=== PATIENT | male | born 1975 | race African-American/Black ===

== ENCOUNTER 2016-07-30 15:56 | Emergency (ER) | payer OTHER ==
[~2016-07-30] VITALS: Ht 325.1 cm; Wt 86.2 kg
[~2016-07-30 15:56] MED LIST: AZIT250T6 PO; BUPR100T6 PO; CITA40TA12 PO; GUAI118L13 PO; HYDR-2758 PO; HYDR-971 PO; LORA-434 PO; ONDA4TAB10 SL; PRAZ1CAP2 PO; PRAZ5CAP PO; TELM20TA PO; VENL37.5 PO
[2016-07-30 16:37] LABS: BASO % 1 % (0-3); EOS # 0.2 x10^3/uL (0.0-0.7); EOS % 3 % (0-3); HEMATOCRIT 42.8 % (39.0-53.0); HEMOGLOBIN 15.6 g/dL (13.0-17.5); LYMPH # 2.5 x10^3/uL (1.0-4.8); LYMPH % 36 % (24-48); MEAN CORPUSCULAR HEMOGLOBIN 31 pg (25-35); MEAN CORPUSCULAR HGB CONC 37 g/dL (31-37); MEAN CORPUSCULAR VOLUME 84 fL (79-100); MONO # 0.6 x10^3/uL (0.0-1.1); MONO % 8 % (0-9); NEUT # 3.6 x10^3uL (1.8-7.7); NEUT % 53 % (31-73); PLATELET COUNT 256 x10^3/uL (140-400); RED BLOOD COUNT 5.07 x10^6/uL (4.30-5.70); RED CELL DISTRIBUTION WIDTH 13.8 % (11.5-14.5); WHITE BLOOD COUNT 6.9 x10^3/uL (4.0-11.0)
[2016-07-30] MEDS ORDERED: IOHEXOL 300 MG/ML 75 ML VIAL. IV ONE (16:45)
[2016-07-30] MEDS ORDERED: IOHEXOL 240 MG/ML 50ML VIAL. PO ONE (16:45)
[2016-07-30 16:54] LABS: ALBUMIN 3.9 g/dL (3.4-5.0); ALBUMIN/GLOBULIN RATIO 1.1 (1.0-1.7); ALK PHOS 69 U/L (46-116); ALT (SGPT) 56 U/L (16-63); ANION GAP 10 (6-14); AST (SGOT) 21 U/L (15-37); BLOOD UREA NITROGEN 18 mg/dL (8-26); BUN/CREATININE RATIO 18 (6-20); CALCIUM 8.6 mg/dL (8.5-10.1); CARBON DIOXIDE 27 mmol/L (21-32); CHLORIDE 105 mmol/L (98-107); CREATINE KINASE 287 U/L (39-308); GFR 98.7; GLUCOSE 92 mg/dL (70-99); LIPASE 160 U/L (73-393); POTASSIUM 3.5 mmol/L (3.5-5.1); SODIUM 142 mmol/L (136-145); TOTAL BILIRUBIN 0.4 mg/dL (0.2-1.0); TOTAL PROTEIN 7.3 g/dL (6.4-8.2)
--- NOTE | 2016-07-30 17:02 | PHYS DOC ---
Past History Past Medical History: Anxiety, Depression Past Surgical History: No Surgical History Alcohol Use: None Drug Use: None Adult General Chief Complaint Chief Complaint: palpitations HPI HPI Patient is a 41-year-old man who presents to the ED with a complaint of palpitations for a couple of hours earlier today. Patient states he was fine when he got up this morning. Around 10:00 he started to notice episodes where he would be able to feel his heart beat fast and sometimes irregular, each episode would last a few seconds and would go away by itself. This happened several times from about 10 or 10:30 until about 1:30. On arrival to the ED, it has not happened for about 2-1/2 hours. He did not have chest pain associated with it, not shortness of air, just had this sensation of his heart pounding in his chest. He's never had that before. No cardiac problems. The patient states his pain that he is having today is actually in his abdomen. He has been having mid abdominal pain for about 3 weeks now, becoming increasingly bad. For about the first week he just ignored it, thought it would go away. Then about 2 weeks ago, he saw his doctor at [place]. She ordered an ultrasound which is scheduled for this coming Monday. She also gave him some Prilosec which she has taken but has not helped. The pain is constant, located mid abdomen to slightly above the umbilicus. It does not radiate. It started out as negative pain but now is quite bothersome. Some nausea and anorexia, no vomiting. No diarrhea, no black stools or bloody stools. Some stools have been yellow or 10 in color "like baby stools". No urinary symptoms. No GERD symptoms. He's never had this before the last 3 weeks. He has no chronic stomach or abdominal problems. He's never had abdominal surgery, denies history of a hernia. PCP at [place] Review of Systems Review of Systems Constitutional: Denies fever or chills [] Respiratory: Denies cough or shortness of breath [] Cardiovascular: As in history of present illness GI: As in history of present illness : Denies dysuria or hematuria [] Musculoskeletal: Denies back pain or joint pain [] Integument: Denies rash or skin lesions [] Neurologic: Denies headache, focal weakness or sensory changes [] Allergies Allergies Allergies Coded Allergies Type Severity Reaction Last Updated Verified ibuprofen Allergy Unknown 05/20/15 No naproxen Allergy Unknown 05/20/15 No Physical Exam Physical Exam Constitutional: Well developed, well nourished, no acute distress, non-toxic appearance. Alert, mentating normally, vital signs stable, heart rate 70s and sinus without ectopy on the monitor. HENT: Normocephalic, atraumatic, bilateral external ears normal, nose normal. [ ] Eyes: conjunctiva normal, no discharge. [] Neck: Normal range of motion, no stridor. [] Cardiovascular:Heart rate regular rhythm, no murmur [] Lungs & Thorax: Bilateral breath sounds clear to auscultation [] Abdomen: Bowel sounds normal, no bruit. Mild increased tympany across the upper abdomen but no obvious distention. Abdomen is tender to mild palpation in all quadrants, slightly worse across the upper abdomen and just above the umbilicus. No mass, no pulsatile mass. No definite rebound or guarding but he does have significant tenderness. Skin: Warm, dry, no erythema, no rash. [] Extremities: No tenderness, no cyanosis, no clubbing, ROM intact, no edema. [] Neurologic: Alert and oriented X 3, normal motor function, normal sensory function, no focal deficits noted. [] Current Patient Data Vital Signs Vital Signs Date Time Temp Pulse Resp B/P (MAP) Pulse Ox O2 Delivery O2 Flow Rate FiO2 07/30/16 16:13 97.8 68 16 100 Room Air Lab Results Laboratory Tests Test 07/30/16 16:15 White Blood Count 6.9 x10^3/uL (4.0-11.0) Red Blood Count 5.07 x10^6/uL (4.30-5.70) Hemoglobin 15.6 g/dL (13.0-17.5) Hematocrit 42.8 % (39.0-53.0) Mean Corpuscular Volume 84 fL (79-100) Mean Corpuscular Hemoglobin 31 pg (25-35) Mean Corpuscular Hemoglobin Concent 37 g/dL (31-37) Red Cell Distribution Width 13.8 % (11.5-14.5) Platelet Count 256 x10^3/uL (140-400) Neutrophils (%) (Auto) 53 % (31-73) Lymphocytes (%) (Auto) 36 % (24-48) Monocytes (%) (Auto) 8 % (0-9) Eosinophils (%) (Auto) 3 % (0-3) Basophils (%) (Auto) 1 % (0-3) Neutrophils # (Auto) 3.6 x10^3uL (1.8-7.7) Lymphocytes # (Auto) 2.5 x10^3/uL (1.0-4.8) Monocytes # (Auto) 0.6 x10^3/uL (0.0-1.1) Eosinophils # (Auto) 0.2 x10^3/uL (0.0-0.7) Basophils # (Auto) 0.0 x10^3/uL (0.0-0.2) Prothrombin Time 10.0 SEC (9.4-11.4) Prothrombin Time INR 1.0 (0.9-1.1) PTT 26 SEC (23-33) Troponin I Quantitative < 0.017 ng/mL (0-0.055) EKG EKG 12-lead EKG read by me. Sinus rhythm. Heart rate 66. There are no acute ST or T wave changes indicative of ischemia or infarction. There is no rhythm disturbance. No STEMI. 1612 [] Radiology/Procedures Radiology/Procedures PROCEDURE: CT ABD PELV W/ORAL&IV CONTRAST PROCEDURE CT abdomen and pelvis with contrast. HISTORY Mid abdominal pain radiating to the right for 3 weeks. TECHNIQUE Axial images and coronal and sagittal re-formatted images are provided. Oral contrast and 75 milliliters of intravenous Omnipaque 300 was administered without complication. One or more of the following individualized dose reduction techniques were utilized for this exam: 1. Automated exposure control. 2. Adjustment of the mA and/or kV according to patient's size. 3. Use of iterative reconstruction technique. COMPARISON None provided. FINDINGS Lung bases are clear. There is no pleural effusion. The heart is not enlarged. The liver is unremarkable. There is cholelithiasis. Spleen, pancreas, and adrenals are unremarkable. Kidneys are symmetrically perfused. Aorta is normal caliber. There is no small bowel obstruction or mural thickening. Normal appendix is noted. Colon is unremarkable. Bladder is unremarkable. Prostate is not enlarged. There are calcified phleboliths. There are degenerative changes at the lumbosacral junction. IMPRESSION No acute abdominal findings. Electronically signed by: Ruben Reis MD (July 30, 2016 18:36:47) DICTATED AND SIGNED BY: RUBEN REIS MD DATE: 07/30/16 183[] Course & Med Decision Making Course & Med Decision Making Pertinent Labs and Imaging studies reviewed. (See chart for details) --- I assumed care of the patient at the end of Dr. Doss's shift. He was resting comfortably throughout my care. CT results as above. Found to have gallstones which had been noted on previous study, exam & labs/imaging not suggesting cholecystitis, and otherwise no acute finding. His pain was controlled here and he was comfortable with discharge home. Gave prescriptions for [place] to use as needed for severe pain. No drinking alcohol or driving while taking [place]. Also gave prescription for Zantac. Recommend avoiding greasy, fatty, spicy foods and alcohol. Provided with referrals to Dr. Ash in the general surgery clinic and Dr. Deshpande in the GI clinic. Return to the emergency department for high fever, severe pain, uncontrolled vomiting, blood in emesis or stools, any otherwise worsening condition. Discharged home in stable condition. Nick Dc MD [] Dragon Disclaimer Dragon Disclaimer This chart was dictated in whole or in part using Voice Recognition software in a busy, high-work load, and often noisy Emergency Department environment. It may contain unintended and wholly unrecognized errors or omissions. Departure Departure: Impression: Primary Impression: Abdominal pain Additional Impressions: Cholelithiasis Palpitations Disposition: 01 HOME, SELF-CARE Condition: STABLE Referrals: TATIANA MARTINS MD (PCP) ASHLEIGH ASH MD, MICHAEL F Patient Instructions: Abdominal Pain, Child, Cholelithiasis, [id number], Palpitations, [id number] Additional Instructions: You were seen in the emergency department for palpitations and abdominal pain. CT scan did show gallstones but no evidence of infection. Try to avoid eating spicy and fatty foods. Avoid alcohol. Use [place] as needed for severe pain. Take Zantac to treat heartburn. Follow-up in the GI clinic as well as with general surgery. Contact numbers for Dr. Deshpande and Dr. Ash are listed above. Return to the emergency department for high fever, severe pain, uncontrolled vomiting, blood in vomit or stools, any otherwise worsening condition. Scripts Ranitidine Hcl (ZANTAC) 150 Mg Tablet 150 MG PO DAILY for 14 Days, #14 TAB Prov: NICK DC MD 07/30/16 Hydrocodone Bit/Acetaminophen (NORCO 5-325 TABLET) 1 Each Tablet 1-2 TAB PO Q4-6HRS Y for SEVERE PAIN, #10 TAB Prov: NICK DC MD 07/30/16 Problem Qualifiers FRANCIE DOSS MD July 30, 2016 17:02 NICK DC MD July 30, 2016 19:02
[2016-07-30] MEDS ORDERED: HYDR-971 PO (19:02)
[2016-07-30] MEDS ORDERED: RANI150T6 PO (19:02)
[2016-07-30 19:03] VITALS: BP 113/82
--- NOTE | 2016-07-30 19:31 | RAD ---
PROCEDURE CT abdomen and pelvis with contrast. HISTORY Mid abdominal pain radiating to the right for 3 weeks. TECHNIQUE Axial images and coronal and sagittal re-formatted images are provided. Oral contrast and 75 milliliters of intravenous Omnipaque 300 was administered without complication. One or more of the following individualized dose reduction techniques were utilized for this exam: 1. Automated exposure control. 2. Adjustment of the mA and/or kV according to patient's size. 3. Use of iterative reconstruction technique. COMPARISON None provided. FINDINGS Lung bases are clear. There is no pleural effusion. The heart is not enlarged. The liver is unremarkable. There is cholelithiasis. Spleen, pancreas, and adrenals are unremarkable. Kidneys are symmetrically perfused. Aorta is normal caliber. There is no small bowel obstruction or mural thickening. Normal appendix is noted. Colon is unremarkable. Bladder is unremarkable. Prostate is not enlarged. There are calcified phleboliths. There are degenerative changes at the lumbosacral junction. IMPRESSION No acute abdominal findings. Electronically signed by: Ruben Reis MD (July 30, 2016 18:36:47)
[2016-07-30 21:45] LABS: PLT ESTIMATE ADEQUATE (ADEQUATE)
--- NOTE | 2016-07-31 21:02 | EKG ---
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
== END 2016-07-30 19:11 | disposition home or self-care (01) ==
LOC: ER 15:56
DX: K80.20 Calculus of gallbladder without cholecystitis without obstruction (principal); R00.2 Palpitations; Z88.6 Allergy status to analgesic agent
CPT/HCPCS: 36415; 74177; 80053; 82553; 83690; 84484; 85008; 85027; 85610; 85730; 93005; 99285-25

== ENCOUNTER 2020-11-09 19:49 | Emergency (ER) | payer OTHER ==
[~2020-11-09] VITALS: Ht 325.1 cm; Wt 84.0 kg
[~2020-11-09 19:49] MED LIST changes: +HYDR-2155 PO; -HYDR-2758 PO; +HYDR-3165 PO; -HYDR-971 PO; +LORA-254 PO; -LORA-434 PO; +RANI-376 PO
[2020-11-09 19:58] VITALS: BP 160/98
--- NOTE | 2020-11-10 00:47 | PHYS DOC ---
Past History Past Medical History: Anxiety, Depression Past Surgical History: No Surgical History, Cholecystectomy Alcohol Use: None Drug Use: None General Adult EDM: Chief Complaint: ANIMAL BITE HPI: HPI: ".. I got bit by dog .. down at [address] BIJU.. here on my right ankle..." Patient is a 45 year old male who presents with 1 cm scrape / dog bite to Rt. baca. Review of Systems: Review of Systems: Constitutional: Denies fever or chills Eyes: Denies change in visual acuity HENT: Denies nasal congestion or sore throat Respiratory: Denies cough or shortness of breath Cardiovascular: Denies chest pain or edema GI: Denies abdominal pain, nausea, vomiting, bloody stools or diarrhea : Denies dysuria Musculoskeletal: Denies back pain or joint pain Integument: Denies rash Neurologic: Denies headache, focal weakness or sensory changes Endocrine: Denies polyuria or polydipsia Lymphatic: Denies swollen glands Psychiatric: Denies depression or anxiety Current Medications: Current Meds: Current Medications Medications (Trade) Dose Ordered Sig/Marco Start Time Stop Time Status Last Admin Dose Admin Diphtheria/ Pertussis/Tetanus Vacc (ADACEL TDap SYRINGE) 0.5 ml ONCE ONCE 11/10/20 01:00 11/10/20 01:01 Allergies: Allergies: Allergies Coded Allergies Type Severity Reaction Last Updated Verified ibuprofen Allergy Unknown 05/20/15 No naproxen Allergy Unknown 05/20/15 No Physical Exam: PE: Constitutional: Well developed, well nourished, no acute distress, non-toxic appearance. [] HENT: Normocephalic, atraumatic, bilateral external ears normal, oropharynx moist, no oral exudates, nose normal. [] Eyes: PERRLA, EOMI, conjunctiva normal, no discharge. [] Neck: Normal range of motion, no tenderness, supple, no stridor. [] Cardiovascular:Heart rate regular rhythm, no murmur [] Lungs & Thorax: Bilateral breath sounds clear to auscultation [] Abdomen: Bowel sounds normal, soft, no tenderness, no masses, no pulsatile masses. [] Skin: Warm, dry, no erythema, no rash. [] Back: No tenderness, no CVA tenderness. [] Extremities: No tenderness, no cyanosis, no clubbing, ROM intact, no edema. [] Neurologic: Alert and oriented X 3, normal motor function, normal sensory function, no focal deficits noted. [] Psychologic: Affect normal, judgement normal, mood normal. [] Current Patient Data: Vital Signs: Vital Signs Date Time Temp Pulse Resp B/P (MAP) Pulse Ox O2 Delivery O2 Flow Rate FiO2 11/09/20 19:58 97.5 77 12 160/98 98 Room Air EKG: EKG: [] Radiology/Procedures: Radiology/Procedures: [] Heart Score: Risk Factors: Risk Factors: DM, Current or recent (<one month) smoker, HTN, HLP, family history of CAD, obesity. Risk Scores: Score 0 - 3: 2.5% MACE over next 6 weeks - Discharge Home Score 4 - 6: 20.3% MACE over next 6 weeks - Admit for Clinical Observation Score 7 - 10: 72.7% MACE over next 6 weeks - Early Invasive Strategies Course & Med Decision Making: Course & Med Decision Making Pertinent Labs and Imaging studies reviewed. (See chart for details) [] Dragon Disclaimer: Dragon Disclaimer: This electronic medical record was generated, in whole or in part, using a voice recognition dictation system. Departure Departure: Referrals: PCP,UNKNOWN (PCP) RAYSHAWN ROSS MD Nov 10, 2020 00:47
[2020-11-10] MEDS ORDERED: AMOX1TAB61 PO (00:52)
[2020-11-10] MEDS ORDERED: DIPH,PERTUSS(ACELL),TET VAC/PF 0.5 ML SYRINGE. VAX IM ONE (01:00)
[2020-11-10] MEDS ORDERED: cefTRIAXone IM 1 GM VIAL IM ONE (01:30)
[2020-11-10] MEDS ORDERED: BACITRACIN ZINC TOPICAL OINT PACKET. TP ONE (01:30)
== END 2020-11-10 01:47 | disposition home or self-care (01) ==
LOC: ER 19:49
DX: S91.051A Open bite, right ankle, initial encounter (principal); Z88.6 Allergy status to analgesic agent; Z88.8 Allergy status to other drugs, medicaments and biological substances; W54.0XXA Bitten by dog, initial encounter; Y93.89 Activity, other specified; Y92.89 Other specified places as the place of occurrence of the external cause; Y99.8 Other external cause status
CPT/HCPCS: 90471; 90715; 96372; 99284; J0696